=== PATIENT | male | born 1975 | race Caucasian/White ===

== ENCOUNTER 2025-06-17 23:45 | Emergency (ER) | payer SELFPAY ==
[~2025-06-17] VITALS: Ht 167.6 cm; Wt 80.0 kg
[2025-06-17] MEDS: ETOMIDATE 2MG/ML 10ML VIAL IV ONE (23:57)
[2025-06-17] MEDS: ROCURONIUM BROMIDE 10MG/ML VIAL 5ML IV ONE (23:58)
[2025-06-18 00:12] VITALS: PULSE 81; RESP 16; O2SAT 95
[2025-06-18 00:15] VITALS: O2SAT 97
[2025-06-18] MEDS ORDERED: FAMOTIDINE 20MG/2ML VIAL IV ONE (00:15)
[2025-06-18] MEDS: PROPOFOL 10MG/ML 100ML 100 ML IV SCH (00:15)
[2025-06-18] MEDS ORDERED: ONDANSETRON HCL 4MG/2ML INJ IV ONE (00:15)
[2025-06-18] MEDS: SODIUM CHLORIDE 0.9% 1,000 ML IV ONE (00:15)
[2025-06-18 01:09] LABS: BASOPHILS % 0.7 % (0.0-2.0); CREATININE 0.9 mg/dL (0.6-1.3); EOSINOPHILS % 2.0 % (0.0-5.0); HEMATOCRIT. 51.1 % (42.0-52.0); HEMOGLOBIN. 16.9 g/dL (14.0-18.0); LYMPHOCYTES % 24.0 % (20.0-50.0); MONOCYTES % 8.0 % (2.0-8.0); NEUTROPHILS % 65.3 % (40.0-76.0); RED BLOOD CELL COUNT 5.59 mill/uL (4.7-6.1); RED CELL DISTRIBUTION WIDTH 15.0 % (11.6-14.6)
[2025-06-18 01:10] LABS: PROTEIN TOTAL 8.0 g/dL (6.0-8.3); TROPONIN I HIGH SENSITIVITY < 4 ng/L (3.0-53); UREA NITROGEN BLOOD 13 mg/dL (9-23)
[2025-06-18 01:11] LABS: ASPARTATE AMINOTRANSFERASE 89 IU/L (<34)
[2025-06-18 01:12] LABS: BILIRUBIN DIRECT 0.6 mg/dL (<=3.0); BILIRUBIN TOTAL 1.7 mg/dL (0.1-1.0)
[2025-06-18] MEDS ORDERED: VANCOMYCIN 1G PREMIX 200 ML IV ONE (01:15)
[2025-06-18] MEDS ORDERED: NICARDIPINE 50 MG in SODIUM CHLORIDE 0.9% 230 ML IV STA (01:33)
[2025-06-18] MEDS ORDERED: LEVETIRACETAM 500MG PREMIX 100 ML IV ONE (01:45)
[2025-06-18 01:53] LABS: BG BASE EXCESS 3.3 mmol/L (-2.0-3.0); BG CARBOXYHEMOGLOBIN 0.6 % (0.5-1.5); BG DEOXYHEMOGLOBIN 6.3 % (0.0-5.0); BG FRACTION INSPIRED OXYGEN 30; BG HCO3 ACT 28.0 mmol/L (21.0-28.0); BG METHEMOGLOBIN 0.2 % (0.5-1.5); BG OXYGEN SATURATION 93.6 % (94.0-98.0); BG OXYHEMOGLOBIN 92.9 % (94.0-98.0); BG PCO2 42.2 mmHg (35.0-48.0); BG PEEP (cmH2O) 5.0 cmH2O; BG PH 7.439 (7.350-7.450); BG PO2 67.5 mmHg (83.0-108.0); BG SAMPLE SITE LEFT RADIAL; BG TIDAL VOLUME(mL) 500.0 mL; BG TOTAL HEMOGLOBIN 17.9 g/dL (13.5-17.5); BG VENT MODE VENT - AC; BG VENT RATE 16.0 set
[2025-06-18] MEDS: SODIUM CHLORIDE 0.9% (SEPSIS BOLUS) IV ONE (01:55)
[2025-06-18] MEDS: PIPERACILLIN/TAZO 3.375G/50ML 50 ML IV ONE (02:07)
[2025-06-18] MEDS: DEXAMETHASONE 10 MG/ML VIAL IV ONE (02:08)
[2025-06-18 02:41] LABS: TROPONIN I HIGH SENSITIVITY < 4 ng/L (3.0-53)
[2025-06-18] MEDS: NICARDIPINE 40MG/200ML PREMIX 200 ML IV NR (03:24)
[2025-06-18 03:35] VITALS: BP 146/91; PULSE 86; RESP 12; TEMP 35.3; O2SAT 100
[2025-06-18 03:49] LABS: BG BASE EXCESS 2.9 mmol/L (-2.0-3.0); BG CARBOXYHEMOGLOBIN 0.5 % (0.5-1.5); BG DEOXYHEMOGLOBIN 0.3 % (0.0-5.0); BG FLOW(L/min) 15.00 L/min; BG FRACTION INSPIRED OXYGEN 100; BG HCO3 ACT 27.5 mmol/L (21.0-28.0); BG METHEMOGLOBIN 0.3 % (0.5-1.5); BG OXYGEN SATURATION 99.7 % (94.0-98.0); BG OXYHEMOGLOBIN 98.9 % (94.0-98.0); BG PCO2 41.9 mmHg (35.0-48.0); BG PH 7.435 (7.350-7.450); BG PO2 313.5 mmHg (83.0-108.0); BG SAMPLE SITE LEFT RADIAL; BG TOTAL HEMOGLOBIN 17.9 g/dL (13.5-17.5); BG VENT MODE RESUS BAG
[2025-06-18 05:48] LABS: MEAN PLATELET VOLUME 10.8 fl (7.4-10.4); PLATELET 96 x1000/uL (130-400)
== END 2025-06-18 03:50 | disposition short-term general hospital (02) ==
LOC: ER 23:45 → EDBEDREQTM 06-18 01:19 → EDBEDREQ 06-18 01:19 → EDBEDREQTM 06-18 01:28 → ER 06-18 03:50 → CMPBEDREQ 06-19 07:33
DX: I60.9 Nontraumatic subarachnoid hemorrhage, unspecified (principal); J69.0 Pneumonitis due to inhalation of food and vomit; J96.01 Acute respiratory failure with hypoxia; I16.1 Hypertensive emergency; Z79.899 Other long term (current) drug therapy; Z20.822 Contact with and (suspected) exposure to COVID-19
CPT/HCPCS: 99291; 80076; 80048; 80307; 80329; 80320; 82140; 82550; 83605; 83735; 85025; 87040; 84484; 36415; 84145; 71045; 70450; 72125; 74176; 82805; 82375; 31500; 93005; 96367; 96365; 96375; 36600; Z7610 ×5; J1100; J3490 ×2; J2543; J2704; J7050; J7030; 94002; 94070; G0480